=== PATIENT | female | born 1970 | race Caucasian/White ===

== ENCOUNTER 2023-08-12 10:32 | Emergency (ER) | payer BC, MEDICARE ==
[~2023-08-12] VITALS: Ht 172.7 cm; Wt 95.3 kg
[2023-08-12] MEDS ORDERED: ONDANSETRON 4 MG/2 ML VIAL ONE (11:36)
[2023-08-12] MEDS ORDERED: MORPHINE SULFATE 4 MG/1 ML DISP.SYRIN ONE (11:37)
[2023-08-12] MEDS: ONDANSETRON 4 MG/2 ML VIAL IV ONE (11:47)
[2023-08-12] MEDS: MORPHINE SULFATE 4 MG/1 ML DISP.SYRIN IV ONE (11:47)
[2023-08-12 11:51] LABS: BASOPHILS % (AUTO) 0.8 % (0.0-2.0); EOSINOPHILS % (AUTO) 0.3 % (0.0-7.0); HEMATOCRIT 39.6 % (31.2-41.9); HEMOGLOBIN 13.2 g/dL (10.9-14.3); LYMPHOCYTES # (AUTO) 1.9 K/uL (0.8-4.8); LYMPHOCYTES % (AUTO) 32.2 % (20.5-51.5); MEAN CORPUSCULAR HEMOGLOBIN 29.8 uug (24.7-32.8); MEAN CORPUSCULAR HGB CONC 33 g/dL (32.3-35.6); MEAN CORPUSCULAR VOLUME 89.1 fL (75.5-95.3); MONOCYTES # (AUTO) 0.3 K/uL (0.1-1.30); MONOCYTES % (AUTO) 5.5 % (0.0-11.0); NEUTROPHILS # (AUTO) 3.6 K/uL (1.8-8.9); NEUTROPHILS % (AUTO) 61.2 % (38.5-71.5); PLATELET COUNT (AUTO) 240 K/uL (179-408); RED BLOOD CELL COUNT(AUTO) 4.44 MIL/uL (3.63-4.92); RED CELL DISTRIBUTION WIDTH 13.8 % (12.3-17.7); WHITE BLOOD COUNT (AUTO) 5.9 K/uL (3.8-11.8)
[2023-08-12 11:52] LABS: DIFFERENTIAL COMMENT 1
[2023-08-12 11:57] LABS: CALCIUM 9.2 mg/dL (8.5-10.1); CARBON DIOXIDE 26 mmol/L (21-32); CHLORIDE 105 mmol/L (98-107); CREATININE 0.7 mg/dL (0.6-1.3); GLUCOSE 110 mg/dL (74-106); POTASSIUM 3.9 mmol/L (3.5-5.1); SODIUM SERUM 141 mmol/L (136-145); UREA NITROGEN, BLOOD 13 mg/dL (7-18)
[2023-08-12] MEDS ORDERED: SWABABLE VALVE TRANSFER SET EA MC ONE (12:02)
[2023-08-12] MEDS ORDERED: IOHEXOL 300MG/ML 100 ML INFUS..BTL ONE (12:02)
[2023-08-12] MEDS ORDERED: IV NORMAL SALINE 250 ML IV ONE (12:02)
[2023-08-12 12:03] LABS: ALANINE AMINOTRANSFERASE 16 U/L (14-59); ALKALINE PHOSPHATASE 47 U/L (50-136); ASPARTATE AMINOTRANSFERASE 10 U/L (15-37); BILIRUBIN,DIRECT < 0.1 mg/dL (0.0-0.2); BILIRUBIN,TOTAL 0.3 mg/dL (0.2-1.0); TOTAL PROTEIN, SERUM 7.4 g/dL (6.4-8.2)
[2023-08-12] MEDS ORDERED: MORPHINE SULFATE 2 MG/1 ML DISP.SYRIN ONE (12:15)
[2023-08-12] MEDS: MORPHINE SULFATE 2 MG/1 ML DISP.SYRIN IV ONE (12:23)
[2023-08-12] MEDS ORDERED: HYDR-4209 PO (14:35)
[2023-08-12 14:54] VITALS: BP 155/90; O2SAT 98
== END 2023-08-12 14:54 | disposition home or self-care (01) ==
LOC: ER 10:32
DX: M25.552 Pain in left hip (principal); K21.9 Gastro-esophageal reflux disease without esophagitis; Z88.0 Allergy status to penicillin
CPT/HCPCS: 99285; 74177; 96374; 96375; 80076; 80048; 85025; 36415; 96376; J2405; Q9967; J2270 ×2; A4606; A4663

== ENCOUNTER 2024-12-10 12:26 | Emergency (ER) | payer MEDICARE, BC ==
[~2024-12-10] VITALS: Ht 172.7 cm; Wt 74.8 kg
[~2024-12-10 12:26] MED LIST: HYDR-4209 PO
[2024-12-10 12:35] VITALS: BP 141/96
[2024-12-10] MEDS ORDERED: ONDA4TAB5 PO (13:22)
[2024-12-10] MEDS ORDERED: HYDR4TAB4 PO (13:22)
[2024-12-10 13:31] VITALS: BP 136/91; O2SAT 98
== END 2024-12-10 13:31 | disposition home or self-care (01) ==
LOC: ER 12:35
DX: S49.82XA Other specified injuries of left shoulder and upper arm, initial encounter (principal); M77.9 Enthesopathy, unspecified; R11.2 Nausea with vomiting, unspecified; K21.9 Gastro-esophageal reflux disease without esophagitis; Z87.39 Personal history of other diseases of the musculoskeletal system and connective tissue; Z88.0 Allergy status to penicillin; X58.XXXA Exposure to other specified factors, initial encounter; Y93.89 Activity, other specified; Y92.89 Other specified places as the place of occurrence of the external cause; Y99.8 Other external cause status
CPT/HCPCS: A4606; A4663

== ENCOUNTER 2025-01-12 09:20 | Inpatient (IN) | payer MEDICARE, BC ==
[~2025-01-12] VITALS: Ht 172.7 cm; Wt 72.6 kg
[~2025-01-12 09:20] MED LIST changes: +HYDR4TAB4 PO; +ONDA4TAB5 PO
[2025-01-12] MEDS ORDERED: ONDA8TAB13 PO (09:48)
[2025-01-12] MEDS ORDERED: ALPR0.255 PO (09:48)
[2025-01-12] MEDS ORDERED: LOSA50TA39 PO (09:48)
[2025-01-12] MEDS ORDERED: TRAZ150T75 PO (09:48)
[2025-01-12] MEDS ORDERED: HYDR4TAB6 PO (09:48)
[2025-01-12] MEDS ORDERED: ROSU10TA29 PO (09:48)
[2025-01-12 09:53] LABS: PLATELET COUNT (AUTO) 222 K/uL (179-408); RED BLOOD CELL COUNT(AUTO) 4.82 MIL/uL (3.63-4.92); RED CELL DISTRIBUTION WIDTH 13.4 % (12.3-17.7); WHITE BLOOD COUNT (AUTO) 9.3 K/uL (3.8-11.8)
[2025-01-12 10:02] LABS: CREATININE 0.8 mg/dL (0.6-1.3); SODIUM SERUM 141 mmol/L (136-145); UREA NITROGEN, BLOOD 9 mg/dL (7-18)
[2025-01-12 10:16] LABS: ASPARTATE AMINOTRANSFERASE 12 U/L (15-37); TOTAL PROTEIN, SERUM 7.7 g/dL (6.4-8.2)
[2025-01-12] MEDS ORDERED: NITROGLYCERIN OINT 1 GM PACKET TP ONE (10:20)
[2025-01-12] MEDS ORDERED: ASPIRIN 325 MG TABLET ONE (10:20)
[2025-01-12 10:22] LABS: *BILIRUBIN,URIN NEGATIVE (NEGATIVE); *BLOOD, URINE 2+ (NEGATIVE); *COLOR,URINE YELLOW (YELLOW); *KETONES,URINE 1+ (NEGATIVE); *PROTEIN,URINE NEGATIVE (NEGATIVE); *UROBILINOGEN,URINE 0.2 E.U./dl (NORMAL); LEUKOCYTE ESTERASE ,URINE NEGATIVE (NEGATIVE); NITRITE, URINE NEGATIVE (NEGATIVE); UGLUCOSE NEGATIVE (NEGATIVE)
[2025-01-12 10:23] LABS: *CLARITY,URINE SLIGHTLY HAZY (CLEAR)
[2025-01-12 10:24] LABS: SQUAMOUS EPITHELIAL CELL,UR MODERATE /HPF (NONE SEEN); URINE AMORPHOUS PHOSPHATES FEW /HPF
[2025-01-12] MEDS: ASPIRIN 325 MG TABLET PO ONE (10:25)
[2025-01-12] MEDS: NITROGLYCERIN OINT 1 GM PACKET TP ONE (10:25)
[2025-01-12] MEDS ORDERED: ONDANSETRON 4 MG/2 ML VIAL ONE (10:40)
[2025-01-12] MEDS: ONDANSETRON 4 MG/2 ML VIAL IV ONE (10:43)
[2025-01-12 11:02] VITALS: BP 129/86
[2025-01-12 12:00] VITALS: BP 118/76; TEMP 98.5; O2SAT 98
[2025-01-12] MEDS ORDERED: ZOLPIDEM 5 MG TABLET PO PRN (13:00)
[2025-01-12] MEDS ORDERED: Medication Not On Formulary EA (Trazodone Hcl (Desyrel) 1 TAB) PO PRN (13:00)
[2025-01-12] MEDS ORDERED: REMEDY ESSENTIAL ZINC PASTE 113 GM TP PRN (13:00)
[2025-01-12] MEDS ORDERED: ONDANSETRON PO PRN (13:00)
[2025-01-12] MEDS ORDERED: MAGNESIUM HYDROXIDE 30 ML LIQUID UDC PO PRN (13:00)
[2025-01-12] MEDS ORDERED: Medication Not On Formulary EA (Hydromorphone HCl (Dilaudid) 4 MG) PO SCH (13:00)
[2025-01-12] MEDS: HYDROMORPHONE HCL 2 MG TABLET PO ONE (13:58)
[2025-01-12] MEDS: CARISOPRODOL 350 MG TABLET PO ONE (14:56)
[2025-01-12] MEDS ORDERED: ASPI81TA31 PO (15:06)
[2025-01-12] MEDS ORDERED: CARISOPRODOL 350 MG TABLET PO SCH (15:15)
[2025-01-12] MEDS ORDERED: IBUP-1957 PO (15:17)
[2025-01-12] MEDS ORDERED: CARI350T27 PO (15:18)
[2025-01-12] MEDS ORDERED: OMEP40CA21 PO (15:19)
[2025-01-12] MEDS: ONDANSETRON ODT 4 MG TAB.RAPDIS SL PRN (15:36)
[2025-01-12 16:33] VITALS: BP 110/73; TEMP 98.8; O2SAT 96
[2025-01-12] MEDS ORDERED: ALPRAZOLAM 0.25 MG TABLET PO SCH (17:00)
[2025-01-12] MEDS ORDERED: ALPRAZOLAM 0.5 MG TABLET PO PRN (17:00)
[2025-01-12] MEDS: ACETAMINOPHEN 325 MG TABLET PO PRN (17:40)
[2025-01-12] MEDS ORDERED: ONDANSETRON HCL 4 MG TABLET PO SCH (18:00)
[2025-01-12] MEDS ORDERED: IOHEXOL 300MG/ML 100 ML INFUS..BTL ONE (18:26)
[2025-01-12] MEDS: ONDANSETRON 4 MG/2 ML VIAL IV PRN (18:55)
[2025-01-12] MEDS: HYDROMORPHONE HCL 2 MG TABLET PO PRN (18:56)
[2025-01-12 19:55] VITALS: BP 127/67; TEMP 98.1; O2SAT 96
[2025-01-12] MEDS: ATORVASTATIN 20 MG TABLET PO SCH (20:09)
[2025-01-12] MEDS: CARISOPRODOL 350 MG TABLET PO SCH (20:09)
[2025-01-12] MEDS: ENOXAPARIN SODIUM 40 MG/0.4 ML DISP.SYRIN SQ SCH (20:17)
[2025-01-12] MEDS: TRAZODONE 100 MG TABLET PO SCH (21:00)
[2025-01-13 00:45] VITALS: BP 129/77; TEMP 98.1; O2SAT 98
[2025-01-13 05:07] VITALS: BP 140/69; TEMP 97.8; O2SAT 99
[2025-01-13] MEDS: PANTOPRAZOLE SODIUM 40 MG TABLET.DR PO SCH (06:13)
[2025-01-13 07:31] LABS: PLATELET COUNT (AUTO) 195 K/uL (179-408); RED BLOOD CELL COUNT(AUTO) 4.50 MIL/uL (3.63-4.92); RED CELL DISTRIBUTION WIDTH 13.4 % (12.3-17.7); WHITE BLOOD COUNT (AUTO) 7.8 K/uL (3.8-11.8)
[2025-01-13 07:54] LABS: CREATININE 0.7 mg/dL (0.6-1.3); SODIUM SERUM 143.0 mmol/L (136-145); UREA NITROGEN, BLOOD 11.0 mg/dL (7-18)
[2025-01-13 08:00] VITALS: BP 137/77; TEMP 98.7; O2SAT 99
[2025-01-13] MEDS: ASPIRIN 81 MG TAB.CHEW PO SCH (08:27)
[2025-01-13] MEDS: LOSARTAN POTASSIUM 50 MG TABLET PO SCH (08:28)
[2025-01-13 12:00] VITALS: BP 138/72; TEMP 98.4; O2SAT 98
[2025-01-13 16:00] VITALS: BP 137/72; TEMP 99.1; O2SAT 97
[2025-01-13 19:30] VITALS: BP 135/74; TEMP 98; O2SAT 99
[2025-01-14 00:08] VITALS: BP 114/53; TEMP 98.1; O2SAT 96
[2025-01-14 04:44] VITALS: BP 128/75; TEMP 98; O2SAT 98
[2025-01-14 07:15] LABS: PLATELET COUNT (AUTO) 184 K/uL (179-408); RED BLOOD CELL COUNT(AUTO) 4.41 MIL/uL (3.63-4.92); RED CELL DISTRIBUTION WIDTH 13.1 % (12.3-17.7); WHITE BLOOD COUNT (AUTO) 5.3 K/uL (3.8-11.8)
[2025-01-14 07:43] LABS: CREATININE 0.7 mg/dL (0.6-1.3); SODIUM SERUM 140.0 mmol/L (136-145); UREA NITROGEN, BLOOD 16.0 mg/dL (7-18)
[2025-01-14 12:01] VITALS: BP 125/65; TEMP 99; O2SAT 98
[2025-01-14 15:15] VITALS: BP 112/61; TEMP 98.8; O2SAT 17
== END 2025-01-14 15:25 | disposition home or self-care (01) | DRG 206 ==
LOC: ER 09:23 → TELE3 11:30 → MEDSURG3 01-14 13:15
PROVIDERS: ADMIT Student in an Organized Health Care Education/Training Program; ATTEND Student in an Organized Health Care Education/Training Program
DX: M94.0 Chondrocostal junction syndrome [Tietze] (principal); N82.8 Other female genital tract fistulae; I16.0 Hypertensive urgency; G89.4 Chronic pain syndrome; R31.9 Hematuria, unspecified; Z87.440 Personal history of urinary (tract) infections; E78.5 Hyperlipidemia, unspecified; K21.9 Gastro-esophageal reflux disease without esophagitis; R00.1 Bradycardia, unspecified; Z90.710 Acquired absence of both cervix and uterus; F41.9 Anxiety disorder, unspecified; I11.9 Hypertensive heart disease without heart failure; R82.71 Bacteriuria; R31.21 Asymptomatic microscopic hematuria; Z98.1 Arthrodesis status
CPT/HCPCS: 36415; 71045; 74160; 76775; 83735; 84100; 84443; 84484; 85025; 85730; 87086; 93307; A4606; A4663; G0378; J1650; J2405; Q0162; Q9967

== ENCOUNTER 2025-02-18 19:41 | Emergency (ER) | payer MEDICARE, BC ==
[~2025-02-18] VITALS: Ht 172.7 cm; Wt 72.6 kg
[~2025-02-18 19:41] MED LIST changes: +ALPR0.255 PO; +ASPI81TA31 PO; +CARI350T27 PO; -HYDR-4209 PO; -HYDR4TAB4 PO; +HYDR4TAB6 PO; +IBUP-1957 PO; +LOSA50TA39 PO; +OMEP40CA21 PO; -ONDA4TAB5 PO; +ONDA8TAB13 PO; +ROSU10TA29 PO; +TRAZ150T75 PO
[2025-02-18 19:46] VITALS: BP 125/74
[2025-02-18] MEDS ORDERED: DOXYCYCLINE HYCLATE 100 MG TABLET ONE (20:12)
[2025-02-18] MEDS ORDERED: NEOMY/BACITRA/POLYMYXIN B OINT UD PACKET TP ONE (20:13)
[2025-02-18] MEDS ORDERED: HYDROCODONE/APAP 5-325MG TABLET ONE (20:13)
[2025-02-18] MEDS ORDERED: TDAP DIPH,PERTUSS,TET VAC/PF 0.5 ML DISP.SYRIN IM ONE (20:13)
[2025-02-18] MEDS ORDERED: KETOROLAC TROMETHAMINE 30 MG INJ ONE (20:13)
[2025-02-18] MEDS: HYDROCODONE/APAP 5-325MG TABLET PO ONE (20:25)
[2025-02-18] MEDS: TDAP DIPH,PERTUSS,TET VAC/PF 0.5 ML DISP.SYRIN IM ONE (20:25)
[2025-02-18] MEDS: NEOMY/BACITRA/POLYMYXIN B OINT UD PACKET TP ONE (20:25)
[2025-02-18] MEDS: DOXYCYCLINE HYCLATE 100 MG TABLET PO ONE (20:25)
[2025-02-18] MEDS: KETOROLAC TROMETHAMINE 30 MG INJ IM ONE (20:25)
[2025-02-18] MEDS ORDERED: NAPR500T6 PO (20:51)
[2025-02-18] MEDS ORDERED: HYDR-4209 PO (20:51)
[2025-02-18] MEDS ORDERED: DOXY-326 PO (20:51)
[2025-02-18 21:00] VITALS: BP 125/74; O2SAT 97
== END 2025-02-18 21:01 | disposition home or self-care (01) ==
LOC: ER 20:14
DX: S51.831A Puncture wound without foreign body of right forearm, initial encounter (principal); I11.9 Hypertensive heart disease without heart failure; G89.29 Other chronic pain; Z79.899 Other long term (current) drug therapy; Z88.0 Allergy status to penicillin; W54.0XXA Bitten by dog, initial encounter; Y93.89 Activity, other specified; Y92.009 Unspecified place in unspecified non-institutional (private) residence as the place of occurrence of the external cause; Y99.9 Unspecified external cause status
CPT/HCPCS: 99284; 73090; 73120; 90715; 96372; 90471; J1885; A4606; A4663